=== PATIENT | female | born 1975 | race African-American/Black ===

== ENCOUNTER 2016-05-14 05:16 | Emergency (ER) | payer MEDICAID ==
[2016-05-14 05:26] VITALS: BP 131/89; PULSE 78; TEMP 97.8; BMI 32.8
[2016-05-14] MEDS ORDERED: CLINDAMYCIN 150 MG CAP PO ONE (06:15)
[2016-05-14] MEDS ORDERED: OXYCODONE HCL 5 MG TABLET PO ONE (06:15)
--- NOTE | 2016-05-14 06:17 | EDPRACDOC ---
- General Information Chief Complaint: Toothache Stated Complaint: TOOTHACHE Time Seen by Provider: 05/14/16 06:15 Information Source: Patient Home Medications: Home Medications PEG-Electrolytes (Miralax) [Miralax] 17 gm PO DAILY #20 pack 11/15/15 Ibuprofen Tablet [Motrin] 600 mg PO Q6H #30 tab 02/11/16 Oxycodone Immediate Release [Oxycodone Immediate Release (OxyIR)] 5 mg PO Q6H PRN #14 tab 03/25/16 Prednisone [Deltasone, Orasone] 20 mg PO BID #12 tab 03/25/16 Clindamycin HCl 300 mg PO TID #30 capsule 05/14/16 Oxycodone HCl/Acetaminophen [Percocet 5-325 mg Tablet] 1 each PO Q4 #30 tablet 05/14/16 Allergies/Adverse Reactions: Allergies Allergy/AdvReac Type Severity Reaction Status Date / Time Penicillins Allergy Unknown Verified 03/25/16 15:37 - History of Present Illness Onset: 2 DAYS HPI: PATIENT PRESENTS C/O RIGHT LOWER JAW PAIN AND DENTAL PAIN. 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 Denies: Hysterectomy - Social Medical History Smoking Status: Never smoker ETOH: None Substance Abuse: None Lives With: Family Lives In: Home EDM Review of Systems - Review of Systems ROS Negative Except as Marked: Yes All systems reviewed and were negative except as marked Constitutional: No Symptoms Reported. negative: Fever, Chills, Weakness, Fatigue, Loss of Appetite Eyes: No Symptoms Reported. negative: Redness, Blurred Vision, Double Vision, Discharge, Pain, Light Sensitive, Photophobia Ears: No Symptoms Reported. negative: Pain, Hearing Loss, Drainage, Ear Pulling Throat: No Symptoms Reported. negative: Pain, Swelling Nose: No Symptoms Reported. negative: Congestion, Bleeding, Discharge, Injection, Swelling, Deformity, Ecchymosis, Tender, Abrasion, Laceration Mouth: Pain, Tooth Pain. negative: Drooling Respiratory: No Symptoms Reported. negative: Cough, Brassy Cough, Barky Cough, Shortness of Breath, Wheezing, Hemoptysis Cardiovascular: No Symptoms Reported. negative: Chest Pain, Palpitations, Syncope, Edema, Orthopnea, PND, Skin Mottling, Cyanosis Gastrointestinal: No Symptoms Reported. negative: Pain, Constipation, Nausea, Vomiting, Diarrhea, Melena, Formula Intolerance Genitourinary: No Symptoms Reported. negative: Dysuria, Hematuria, Frequency, Discharge, Bleeding, Testicular Pain, Neurological: No Symptoms Reported. negative: Headache, Dizziness, Seizure, Numbness, Weakness, Speech Difficulty, Gait Difficulty Musculoskeletal: No Symptoms Reported. negative: Neck, Chestwall, Ribs, Back, Shoulder, Arm, Elbow, Forearm, Wrist, Hand, Pelvis, Hip, Femur, Knee, Leg, Ankle , Foot Integumentary: No Symptoms Reported. negative: Itching, Rash, Bruising, Wound Allergic/Immunologic: No Symptoms Reported. negative: Hives, Itching Hematologic: No Symptoms Reported. negative: Lymphadenopathy, Easy Bruising, Easy Bleeding Endocrine: No Symptoms Reported. negative: Weight Gain, Weight Loss Psychiatric: No Symptoms Reported. negative: Anxiety, Depression, Hallucinations, Insomnia, Suicidal - Physical Exam Constitutional: Alert (Awake), Distress (MILD) Oriented to: Time, Person, Place Last recorded Vital Signs: Last Vital Signs Temp 97.8 F 05/14/16 05:22 Pulse 78 05/14/16 05:22 Resp 20 05/14/16 05:22 BP 131/89 05/14/16 05:22 Pulse Ox 96 05/14/16 05:22 Oxygen Pulse Oxygen Saturation 96 O2 Device Room Air Oxygen Flow Rate Fraction of Inspired Oxygen ( FIO2) - HEENT Head: Normal ( normocephalic) Eye Exam: Normal (PERRL, EOMI, Sclera white) Oropharynx: Normal (Pharynx:Moist without exudate,Gums-no swelling) Tympanic Membrane: Normal ENT EAC: Normal TMJ: Normal Nose: No Symptoms Reported (septum midline) Neck: Normal (FROM, trachea at midline) - Respiratory/Cardiovascular Respiratory: Normal - CTA (BBS clear to auscultation without adventitious sounds ) Cardiovascular: Normal (RRR without murmur, gallop or rub) - GI Auscultation: Normal (NABS) Palpation: Normal (Soft,No rebound or guarding, non distended) Tenderness: Non tender Doty's Sign: Negative - Musculoskeletal Back: Normal (Non-Tender) Extremities: Normal (Normal tone, Pulses 2+ No cyanosis or edema, FROM) - Integumentary Skin: Normal, Warm, Dry Lymphatics: Normal (no adenopathy) - Neurologic Memory Impaired: Normal Motor Function: Normal (Normal tone, Pulses 2+ No cyanosis or edema, FROM) Cranial Nerve: Normal (CN II-X11 intact sensation, strength 5/5) Cerebellar: Normal Mood Description: Normal Perception: Normal ED Tooth Problem Exam - HEENT Face: Normal Teeth: Right: Molar-2 Lower (DENTAAL CARIES) Gingiva: Normal Palate: Normal Mouth Range of Motion: Normal Sinuses: Normal Oropharynx: Normal Neck: Normal Decision Time to Discharge: 06:17 - Departure Yes I personally saw and evaluated the patient. Disposition: Home Condition: Good Final Diagnosis: Dental caries Instructions: Dental Caries (ED) Education/Counseling Given To: Patient Education/Counseling Given Regarding: Diagnosis, Treatment, Prognosis, Follow Up Referrals: Erickson Barrett MD [Primary Care Provider] - One Week Prescriptions: New Clindamycin HCl 300 mg PO TID #30 capsule Oxycodone HCl/Acetaminophen [Percocet 5-325 mg Tablet] 1 each PO Q4 #30 tablet No Action PEG-Electrolytes (Miralax) [Miralax] 17 gm PO DAILY #20 pack Ibuprofen Tablet [Motrin] 600 mg PO Q6H #30 tab Oxycodone Immediate Release [Oxycodone Immediate Release (OxyIR)] 5 mg PO Q6H PRN #14 tab PRN Reason: Pain Prednisone [Deltasone, Orasone] 20 mg PO BID #12 tab
== END 2016-05-14 06:32 | disposition home or self-care (01) ==
LOC: ED 05:16
DX: K02.9 Dental caries, unspecified (principal)
CPT/HCPCS: 99282; J3490